=== PATIENT | male | born 1940 | race Caucasian/White ===

== ENCOUNTER → 2023-05-22 | Outpatient (REF) | payer MEDICARE, BC | LOC: M SFHCDERM 17:23 | PROVIDERS: ATTEND Physician Assistant | DX: L82.1 Other seborrheic keratosis (principal) ==

== ENCOUNTER 2025-01-14 08:15 | Inpatient (IN) | payer MEDICARE, BC ==
[~2025-01-14] VITALS: Ht 175.3 cm; Wt 87.1 kg
[2025-01-14] MEDS: ONDANSETRON 4MG 2ML VIAL IV ONE (08:51)
[2025-01-14] MEDS: MORPHINE 4 MG/ML 1 ML VIAL IV PRN (08:51)
[2025-01-14 08:54] LABS: BASO # 0.1 10^3/uL (0.0-0.2); BASO % 0.9 % (0.0-1.0); EOS # 0.4 10^3/uL (0.0-0.5); EOS % 3.7 % (0.0-3.0); LYMPH # 1.7 10^3/uL (1.5-5.0); LYMPH % 18.2 % (24.0-44.0); MONO # 0.9 10^3/uL (0.0-0.8); MONO % 9.3 % (2.0-8.0); NEUTROPHILS # 6.3 10^3/uL (1.5-8.5); NEUTROPHILS % 66.0 % (36.0-66.0); PLATELET COUNT, AUTOMATED 216 10^3/uL (150-450)
[2025-01-14 09:10] LABS: INR 1.24
[2025-01-14 09:13] LABS: ALT/SGPT 14.0 U/L (7.0-40); AST/SGOT 30.0 U/L (<34); CALCIUM LEVEL 9.1 MG/DL (8.3-10.6); CARBON DIOXIDE LEVEL 28.0 MMOL/L (20-31); CHLORIDE LEVEL 103.0 MMOL/L (98-107); CREATININE FOR GFR 0.98 MG/DL (0.70-1.30); GLOMERULAR FILTRATION RATE 75.1 (>35); POTASSIUM SERUM 4.6 MMOL/L (3.5-5.1); SODIUM LEVEL 143.0 MMOL/L (136-145)
[2025-01-14] MEDS ORDERED: MIRA3350 PO (09:32)
[2025-01-14] MEDS ORDERED: SENN-225 PO (09:32)
[2025-01-14] MEDS ORDERED: FLUO0.0126 AS (09:32)
[2025-01-14] MEDS ORDERED: SERT50TA29 PO (09:32)
[2025-01-14] MEDS ORDERED: NITR0.4S14 SL (09:32)
[2025-01-14] MEDS ORDERED: LINZ290C PO (09:32)
[2025-01-14] MEDS ORDERED: SYST1SOL OU (09:32)
[2025-01-14] MEDS ORDERED: AMLO1TAB24 PO (09:32)
[2025-01-14] MEDS ORDERED: ELIQ5TAB PO (09:32)
[2025-01-14] MEDS ORDERED: HOME MED LIST COMPLETE! XX SCH (09:35)
[2025-01-14] MEDS ORDERED: NALOXONE INJ 0.4 MG/1 ML VIAL IV PRN (11:00)
[2025-01-14] MEDS ORDERED: NITROGLYCERIN 0.4 MG SUBL TABLET SL PRN (11:10)
[2025-01-14] MEDS ORDERED: POLYVINYL ALCOHOL OPHTH SOLN 15ML (LIQUITEARS) OU PRN (11:10)
[2025-01-14] MEDS ORDERED: SENNOSIDES/DOCUSATE SODIUM 8.6 MG/50MG TAB PO PRN (11:10)
[2025-01-14] MEDS ORDERED: MIRALAX *UNIT DOSE* 17 GM PACKET PO PRN (11:10)
[2025-01-14] MEDS ORDERED: ISOVUE-370 76% 100 ML VIAL As Ordered ONE (11:45)
[2025-01-14 11:55] LABS: D-DIMER QUANT 7.02 ug/mL (<0.5)
[2025-01-14 12:11] VITALS: BP 195/86
[2025-01-14] MEDS: amLODIPine 10 MG TAB PO ONE (12:11)
[2025-01-14] MEDS: ACETAMINOPHEN 500 MG TAB PO SCH (12:11)
[2025-01-14] MEDS: MORPHINE 2 MG/ML 1 ML VIAL IV ONE (12:12)
[2025-01-14] MEDS: SERTRALINE HCL 50 MG TAB PO SCH (12:35)
[2025-01-14 18:00] VITALS: BP 196/107; TEMP 97.3; O2SAT 98
[2025-01-14 18:40] VITALS: BP 147/97
[2025-01-14] MEDS: MORPHINE 2 MG/ML 1 ML VIAL IV PRN (19:24)
[2025-01-14 21:47] VITALS: BP 163/102; TEMP 97.5; O2SAT 97
[2025-01-15 01:13] VITALS: BP 153/99
[2025-01-15 06:00] VITALS: BP 145/84; TEMP 97; O2SAT 98
[2025-01-15] MEDS ORDERED: MORPHINE 2 MG/ML 1 ML VIAL IV PRN (07:55)
[2025-01-15] MEDS: MORPHINE 2 MG/ML 1 ML VIAL IV ONE (08:20)
[2025-01-15] MEDS: MORPHINE 2 MG/ML 1 ML VIAL IV PRN (13:17)
[2025-01-15 14:40] VITALS: BP 145/65; TEMP 97.2; O2SAT 93
[2025-01-15] MEDS: D5W/0.45% SODIUM CHLORIDE 1,000 ML IV SCH (16:50)
[2025-01-15 20:00] VITALS: BP 142/73; TEMP 97.3; O2SAT 95
[2025-01-15] MEDS: ACETAMINOPHEN *IV* 1,000 MG in IV 1 EA IV SCH (23:38)
[2025-01-16] VITALS (7 sets, daily range): BP systolic 96–157; BP diastolic 68–82; TEMP 96.8–97.7; O2SAT 91–97
[2025-01-16 07:35] LABS: PLATELET COUNT, AUTOMATED 195 10^3/uL (150-450)
[2025-01-16 07:48] LABS: INR 1.28
[2025-01-16 07:57] LABS: CALCIUM LEVEL 8.5 MG/DL (8.3-10.6); CARBON DIOXIDE LEVEL 29.0 MMOL/L (20-31); CHLORIDE LEVEL 103.0 MMOL/L (98-107); CREATININE FOR GFR 1.09 MG/DL (0.70-1.30); GLOMERULAR FILTRATION RATE 66.1 (>35); POTASSIUM SERUM 4.3 MMOL/L (3.5-5.1); SODIUM LEVEL 141.0 MMOL/L (136-145)
[2025-01-16] MEDS: MORPHINE 2 MG/ML 1 ML VIAL IV ONE (08:20)
[2025-01-16] MEDS: ACETAMINOPHEN *IV* 1,000 MG in IV 1 EA IV ONE (08:21)
[2025-01-16] MEDS: LIDOCAINE 1% SDV 5 ML VIAL PN ONE (13:55)
[2025-01-16] MEDS: ROPIvacaine 0.5% 30ML VIAL PN ONE (13:55)
[2025-01-16] MEDS ORDERED: LIDOCAINE 2% 100 MG/5 ML SDV (FOR ANES.) As Ordered ONE (14:00)
[2025-01-16] MEDS ORDERED: dexAMETHasone 4 MG/ML 1 ML VIAL As Ordered ONE (14:01)
[2025-01-16] MEDS ORDERED: ONDANSETRON 4MG 2ML VIAL As Ordered ONE (14:01)
[2025-01-16] MEDS ORDERED: ACETAMINOPHEN 1000MG/100ML IV BAG As Ordered ONE (15:17)
[2025-01-16] MEDS ORDERED: PHENYLephrine 500MCG 5ML (100MCG/ML) SYRINGE As Ordered ONE (15:28)
[2025-01-16] MEDS: ACETAMINOPHEN *IV* 1,000 MG in IV 1 EA IV SCH (17:11)
[2025-01-16] MEDS: ceFAZolin SODIUM 2 GM in DEXTROSE 5% (D5W) ADV/MINI-BAG 50 ML IV SCH (23:28)
[2025-01-17 04:18] VITALS: BP 156/77; TEMP 96.6; O2SAT 93
[2025-01-17] MEDS ORDERED: PERCOCET 5MG/325MG TAB PO SCH (06:00)
[2025-01-17] MEDS: KETOROLAC 30 MG/ML 1 ML VIAL IV ONE (09:21)
[2025-01-17] MEDS: MORPHINE 2 MG/ML 1 ML VIAL IV ONE (09:22)
[2025-01-17] MEDS: ENOXAPARIN 80 MG/0.8 ML SYRINGE (J1650 PER 10MG) SC SCH (09:22)
[2025-01-17 10:35] VITALS: BP 154/74; TEMP 97.3; O2SAT 97
[2025-01-17] MEDS: PERCOCET 5MG/325MG TAB PO SCH (12:41)
[2025-01-17 14:06] VITALS: BP 137/69; TEMP 97.5; O2SAT 96
[2025-01-17] MEDS: D5W/0.45% SODIUM CHLORIDE 1,000 ML IV SCH (17:28)
[2025-01-17 19:50] VITALS: BP 163/96; TEMP 97.3; O2SAT 93
[2025-01-18 04:55] VITALS: O2SAT 96
[2025-01-18 05:14] VITALS: BP 154/93; TEMP 97.2; O2SAT 96
[2025-01-18 06:15] VITALS: O2SAT 97
[2025-01-18 07:45] LABS: PLATELET COUNT, AUTOMATED 192 10^3/uL (150-450)
[2025-01-18 07:53] LABS: CALCIUM LEVEL 8.2 MG/DL (8.3-10.6); CARBON DIOXIDE LEVEL 28.0 MMOL/L (20-31); CHLORIDE LEVEL 103.0 MMOL/L (98-107); CREATININE FOR GFR 0.97 MG/DL (0.70-1.30); GLOMERULAR FILTRATION RATE 76.0 (>35); POTASSIUM SERUM 4.0 MMOL/L (3.5-5.1); SODIUM LEVEL 140.0 MMOL/L (136-145)
[2025-01-18] MEDS: KETOROLAC 30 MG/ML 1 ML VIAL IV ONE (08:53)
[2025-01-18 14:00] VITALS: BP 153/89; TEMP 97; O2SAT 94
[2025-01-18 21:13] VITALS: BP 148/85; TEMP 96.8; O2SAT 91
[2025-01-19] MEDS: MORPHINE 2 MG/ML 1 ML VIAL IV PRN (06:04)
[2025-01-19] MEDS ORDERED: E-Z-PAQUE 96% w/w SUSP 176 GM BTL As Ordered ONE (09:05)
[2025-01-19] MEDS ORDERED: BARIUM SULFATE 700 MG TABLET As Ordered ONE (09:05)
[2025-01-19] MEDS ORDERED: VARIBAR PUDDING 40% w/v 230ML TUBE As Ordered ONE (09:05)
[2025-01-19] MEDS ORDERED: VARIBAR NECTAR 40% w/v 240ML SUSP BTL As Ordered ONE (09:05)
[2025-01-19] MEDS ORDERED: POLYVINYL ALCOHOL OPHTH SOLN 15ML (LIQUITEARS) OU PRN (10:30)
[2025-01-19] MEDS ORDERED: ATROPINE SULFATE 1% OPHTH SOLN 2 ML BTL SL PRN (10:30)
[2025-01-19] MEDS ORDERED: ONDANSETRON 4MG ORAL DISINTEGRATING TAB PO PRN (10:30)
[2025-01-19] MEDS ORDERED: SALIVA SUBSTITUTE BTL MT PRN (10:30)
[2025-01-19] MEDS ORDERED: CARBAMIDE PEROXIDE 6.5% OTIC SOLN 15 ML AU PRN (10:30)
[2025-01-19] MEDS ORDERED: HYOSCYAMINE SULFATE 0.125 MG SUBL TABLET SL PRN (10:30)
[2025-01-19] MEDS ORDERED: ACETAMINOPHEN 325 MG TAB PO PRN (10:30)
[2025-01-19] MEDS: MIRALAX *UNIT DOSE* 17 GM PACKET PO SCH (11:17)
[2025-01-19] MEDS: SENNOSIDES/DOCUSATE SODIUM 8.6 MG/50MG TAB PO SCH (11:18)
[2025-01-19] MEDS: APIXABAN 5 MG TAB PO SCH (11:24)
[2025-01-19 14:00] VITALS: BP 172/71; TEMP 97.2; O2SAT 99
[2025-01-20] MEDS: MORPHINE 10 MG/0.5 ML ORAL CONCENTRATE SOLUTION U/D SL PRN (03:06)
[2025-01-24] MEDS: LORazepam 1 MG TAB PO PRN (21:50)
[2025-01-25] MEDS ORDERED: ATIV1TAB7 PO (09:02)
[2025-01-25] MEDS ORDERED: ONDA-282 PO (09:02)
[2025-01-25] MEDS ORDERED: MORP1SOL SL (09:02)
[2025-01-25] MEDS ORDERED: HYOS125TA SL (09:02)
== END 2025-01-25 09:55 | disposition hospice, inpatient (51) | DRG 481 ==
LOC: EDBD 08:15 → M ED 08:15 → M ED INP 10:59 → M MS5PR 17:40
PROVIDERS: ADMIT General Practice; ATTEND Family Medicine
PROC: 0QS706Z Reposition Left Upper Femur with Intramedullary Internal Fixation Device, Open Approach (ICD-10-PCS; principal; 2025-01-16 09:00)
DX: S72.142A Displaced intertrochanteric fracture of left femur, initial encounter for closed fracture (principal); I48.21 Permanent atrial fibrillation; F03.90 Unspecified dementia, unspecified severity, without behavioral disturbance, psychotic disturbance, mood disturbance, and anxiety; M81.0 Age-related osteoporosis without current pathological fracture; K59.09 Other constipation; G89.29 Other chronic pain; R13.10 Dysphagia, unspecified; I08.3 Combined rheumatic disorders of mitral, aortic and tricuspid valves; Z85.72 Personal history of non-Hodgkin lymphomas; Z90.5 Acquired absence of kidney; Z86.73 Personal history of transient ischemic attack (TIA), and cerebral infarction without residual deficits; M54.59 Other low back pain; Z96.642 Presence of left artificial hip joint; W18.30XA Fall on same level, unspecified, initial encounter; Y92.009 Unspecified place in unspecified non-institutional (private) residence as the place of occurrence of the external cause; I08.1 Rheumatic disorders of both mitral and tricuspid valves; Z79.899 Other long term (current) drug therapy; Z51.5 Encounter for palliative care; Z66 Do not resuscitate